=== PATIENT | male | born 1985 | race Two or more races ===

== ENCOUNTER 2017-09-01 13:06 | Emergency (ER) | payer OTHER ==
[2017-09-01 13:26] VITALS: BP 142/87; PULSE 78; RESP 18; TEMP 97.5; O2SAT 98
[2017-09-01] MEDS ORDERED: Oxycodone/Acetaminophen 5/325 mg Tab PO STA (13:38)
[2017-09-01] MEDS ORDERED: Lidocaine 5% Patch TD STA (13:40)
--- NOTE | 2017-09-01 13:46 | ED PDOC ---
HPI: Back Time Seen by Provider: 09/01/17 13:27 Chief Complaint (Nursing): Back Pain Chief Complaint (Provider): Lower Back Pain History Per: Patient History/Exam Limitations: no limitations Onset/Duration Of Symptoms: Days Current Symptoms Are (Timing): Still Present Quality Of Discomfort: "Pain" Previous Symptoms: None Associated Symptoms: None Additional Complaint(s): 32 year old male presenting to the ED complaining of lower back back he has been experiencing since last night. The patient reports that lastnight he was playing [employer] ball an during the game he began to feel pain in his lower back. He states that the pain progressively worsened when he went home. The patient states bayaer before sleeping but when he woke up the pain was much worse and he could not get up from his couch. Denies incontinence, nausea, vomiting, abdominal pain, radiation of pain. PMD: Non H Provider Past Medical History Reviewed: Historical Data, Nursing Documentation, Vital Signs Vital Signs: Last Vital Signs Temp 97.5 F L 09/01/17 13:23 Pulse 78 09/01/17 13:23 Resp 18 09/01/17 13:23 BP 142/87 09/01/17 13:23 Pulse Ox 98 09/01/17 13:23 - Medical History PMH: No Chronic Diseases - Surgical History Surgical History: No Surg Hx - Family History Family History: States: Unknown Family Hx - Home Medications Home Medications: Ambulatory Orders Medication Instructions Recorded Lidocaine 5% [Lidoderm] 1 ea TD DAILY PRN #10 patch 09/01/17 Methylprednisolone [Medrol Dose 4 mg PO DAILY #21 mg 09/01/17 Pack (21 tabs)] Naproxen [Naprosyn] 500 mg PO BID PRN #30 tab 09/01/17 diaZEpam [Valium] 10 mg PO ONCE PRN #12 tab 09/01/17 - Allergies Allergies/Adverse Reactions: Allergies Allergy/AdvReac Type Severity Reaction Status Date / Time No Known Allergies Allergy Verified 09/01/17 13:22 Review of Systems ROS Statement: Except As Marked, All Systems Reviewed And Found Negative Gastrointestinal: Negative for: Nausea, Vomiting, Abdominal Pain Genitourinary Male: Negative for: Incontinence Musculoskeletal: Positive for: Back Pain (lower) Physical Exam - Reviewed Nursing Documentation Reviewed: Yes Vital Signs Reviewed: Yes - Physical Exam Appears: Positive for: Non-toxic. Negative for: No Acute Distress (Moderate painful distress) Head Exam: Positive for: NORMAL INSPECTION Skin: Positive for: Normal Color, Warm, Dry. Negative for: Rash Eye Exam: Positive for: Normal appearance, EOMI, PERRL Back: Positive for: Normal Inspection, Muscle Spasm (paralumbar muscle spasm). Negative for: L CVA Tenderness, R CVA Tenderness, Vertebral Tenderness Neurologic/Psych: Positive for: Alert, Oriented - ECG O2 Sat by Pulse Oximetry: 98 (RA) Pulse Ox Interpretation: Normal - Radiology X-Ray: Interpreted by Me (LS spine x-ray) X-Ray Interpretation: No Acute Disease - Progress ED Course And Treament: On re-evaluation, pt. reports feeling better but still with pain. Medical Decision Making Medical Decision Makin Initial Impression 32 y/o male presenting with lower back pain Initial Plan: * Lidoderm 1 ea TD * Percocet 2 tab PO * Toradol 60mg IM * Valium 10mg PO * RAD LS Spine AP/LAT * Reevaluation Documented by Candis Blackmon acting as a scribe for Alfonzo Foster PA-C. All medical record entries made by the Scribe were at my direction and personally dictated by me. I have reviewed the chart and agree that the record accurately reflects my personal performance of the history, physical exam, medical decision making, and the department course for this patient. I have also personally directed, reviewed, and agree with the discharge instructions and disposition. Disposition - Clinical Impression Clinical Impression: Low back pain - Patient ED Disposition Is Patient to be Admitted: No - Disposition Referrals: [facility] [Outside] Disposition: Routine/Home Disposition Time: 23:31 Condition: STABLE Prescriptions: diaZEpam [Valium] 10 mg PO ONCE PRN #12 tab PRN Reason: Muscle Spasm Lidocaine 5% [Lidoderm] 1 ea TD DAILY PRN #10 patch PRN Reason: Pain Methylprednisolone [Medrol Dose Pack (21 tabs)] 4 mg PO DAILY #21 mg Naproxen [Naprosyn] 500 mg PO BID PRN #30 tab PRN Reason: Pain Instructions: Acute Low Back Pain (ED) Forms: [facility] ([place]), [facility] ED School/Work Excuse Print Language: IRISH
[2017-09-01] MEDS ORDERED: Oxycodone/Acetaminophen 5/325 mg Tab ONE (13:58)
[2017-09-01] MEDS ORDERED: Lidocaine 5% Patch TD ONE (14:07)
--- NOTE | 2017-09-01 14:53 | RAD ---
PROCEDURE: Radiographs of the Lumbar Spine. HISTORY: low back pain COMPARISON: No prior. FINDINGS: BONES: Normal alignment. No listhesis. Bilateral L5 pars defects. DISC SPACES: Unremarkable. OTHER FINDINGS: None. IMPRESSION: Bilateral L5 pars defects. Otherwise, unremarkable radiographs of the lumbar spine
== END 2017-09-01 15:55 | disposition home or self-care (01) ==
LOC: H.ER 13:06
DX: M54.5 Low back pain (principal)
CPT/HCPCS: 72100; 96372; 99282; J1885